=== PATIENT | female | born 1950 | race Caucasian/White ===

== ENCOUNTER 2017-10-13 19:27 | Inpatient (IN) | payer MEDICARE, OTHER ==
[2017-10-13 20:17] LABS: BASO % 0.3 % (0.0-1.0); EOS # 0.1 10^3/uL (0.0-0.50); EOS % 0.4 % (0.0-3.0); HEMATOCRIT 35.8 % (36.0-47.0); HEMOGLOBIN 10.6 g/dl (12.0-15.5); IMMATURE GRANULOCYTE % 0.3 % (0-3.0); LYMPH # 0.9 10^3/uL (1.5-4.5); LYMPH % 6.3 % (24.0-44.0); MEAN CORPUSCULAR HEMOGLOBIN 23.8 pg (27.0-33.0); MEAN CORPUSCULAR HGB CONC 29.6 g/dl (32.0-36.5); MEAN CORPUSCULAR VOLUME 80.3 fl (80.0-96.0); MONO # 0.6 10^3/uL (0.0-0.8); MONO % 4.3 % (0.0-5.0); NEUTROPHILS # 12.1 10^3/uL (1.8-7.7); NEUTROPHILS % 88.4 % (36.0-66.0); PLATELET COUNT, AUTOMATED 256 10^3/uL (150-450); RED BLOOD COUNT 4.46 10^6/uL (4.00-5.40); RED CELL DISTRIBUTION WIDTH 16.9 % (11.5-14.5); WHITE BLOOD COUNT 13.6 10^3/uL (4.0-10.0)
[2017-10-13 20:39] LABS: ANION GAP 8 MEQ/L (8-16); BLOOD UREA NITROGEN 10 MG/DL (7-18); CALCIUM LEVEL 8.6 MG/DL (8.8-10.2); CARBON DIOXIDE LEVEL 24 MEQ/L (21-32); CHLORIDE LEVEL 109 MEQ/L (98-107); CK-MB VALUE MASS 1.7 NG/ML (<3.6); CPK CREATINE PHOSPHOKINASE 104 U/L (26-192); CREATININE FOR GFR 0.75 MG/DL (0.55-1.30); GLOMERULAR FILTRATION RATE > 60.0 (>45); GLUCOSE, FASTING 93 MG/DL (70-100); MB/CK RELATIVE INDEX 1.63 (< OR =4); POTASSIUM SERUM 3.8 MEQ/L (3.5-5.1); SODIUM LEVEL 141 MEQ/L (136-145); TROPONIN I < 0.02 NG/ML (< 0.10)
[2017-10-13 20:51] LABS: FREE THYROXINE INDEX 4.3 % (1.3-4.8); T UPTAKE 37 % (30-39); THYROXINE (T4) 11.6 UG/DL (4.5-12.0)
[2017-10-13] MEDS: METOPROLOL TART 25 MG TABLET PO (21:01)
[2017-10-13] MEDS: ACETAMINOPHEN 325 MG TAB PO (21:01)
[2017-10-13] MEDS: AMPICILLIN SOD/SULBACTAM SOD 1.5 GM in D5W MINI-BAG PLUS 50 ML IV (21:34)
[2017-10-13 21:37] LABS: NT-PRO BNP 969 PG/ML (<125)
[2017-10-13 21:44] LABS: LACTIC ACID SEPSIS PROTOCOL 2.1 MMOL/L (0.4-2.0)
[2017-10-13] MEDS: APIXABAN 5 MG TAB (ELIQUIS) PO (21:51)
[2017-10-13] MEDS: FUROSEMIDE 40 MG/4 ML VIAL (J1940) IV (22:05)
[2017-10-13 22:17] LABS: INR 1.02; PROTHROMBIN TIME 13.5 SECONDS (12.4-14.5)
[2017-10-13 22:18] LABS: PARTIAL THROMBOPLASTIN TIME 36.6 SECONDS (26.8-37.9)
[2017-10-14] MEDS: ACETAMINOPHEN TAB 650MG DOSE (2X325MG) PO (02:31)
[2017-10-14] MEDS: AMPICILLIN SOD/SULBACTAM SOD 1.5 GM in D5W MINI-BAG PLUS 50 ML IV ×2 (03:18→09:32)
[2017-10-14 05:49] LABS: HEMATOCRIT 31.6 % (36.0-47.0); HEMOGLOBIN 9.4 g/dl (12.0-15.5); MEAN CORPUSCULAR HEMOGLOBIN 23.3 pg (27.0-33.0); MEAN CORPUSCULAR HGB CONC 29.7 g/dl (32.0-36.5); MEAN CORPUSCULAR VOLUME 78.2 fl (80.0-96.0); PLATELET COUNT, AUTOMATED 240 10^3/uL (150-450); RED BLOOD COUNT 4.04 10^6/uL (4.00-5.40); RED CELL DISTRIBUTION WIDTH 16.8 % (11.5-14.5); WHITE BLOOD COUNT 9.4 10^3/uL (4.0-10.0)
[2017-10-14 06:03] LABS: ANION GAP 5 MEQ/L (8-16); BLOOD UREA NITROGEN 9 MG/DL (7-18); CALCIUM LEVEL 7.8 MG/DL (8.8-10.2); CARBON DIOXIDE LEVEL 28 MEQ/L (21-32); CHLORIDE LEVEL 108 MEQ/L (98-107); CREATININE FOR GFR 0.71 MG/DL (0.55-1.30); GLOMERULAR FILTRATION RATE > 60.0 (>45); GLUCOSE, FASTING 110 MG/DL (70-100); MAGNESIUM LEVEL 2.3 MG/DL (1.8-2.4); POTASSIUM SERUM 3.6 MEQ/L (3.5-5.1); SODIUM LEVEL 141 MEQ/L (136-145)
[2017-10-14] MEDS ORDERED: PILL CRUSHER/CUTTER 1 EACH XX (09:15)
[2017-10-14] MEDS: CYANOCOBALAMIN 500 MCG TAB PO (09:30)
[2017-10-14] MEDS: VITAMIN D 1,000 INTERNATIONAL UNITS TABLET PO (09:30)
[2017-10-14] MEDS: TOLTERODINE (DETROL) 2 MG TAB PO (09:30)
[2017-10-14] MEDS: FERROUS SULFATE 325MG TAB PO (09:31)
[2017-10-14] MEDS: METOPROLOL TART 25 MG TABLET PO ×2 (09:31→21:05)
[2017-10-14] MEDS: FUROSEMIDE 40 MG/4 ML VIAL (J1940) IV (09:31)
[2017-10-14] MEDS: APIXABAN 5 MG TAB (ELIQUIS) PO ×2 (09:31→21:03)
[2017-10-14] MEDS: MULTIVITAMINS/MINERALS THERAP 1 TAB PO (09:31)
[2017-10-14] MEDS: cloNIDine 0.2 MG TAB PO ×2 (10:25→21:06)
[2017-10-14] MEDS: CEPHALEXIN 500 MG CAP PO ×2 (17:14→21:02)
[2017-10-15 05:21] LABS: HEMATOCRIT 29.1 % (36.0-47.0); HEMOGLOBIN 8.5 g/dl (12.0-15.5); MEAN CORPUSCULAR HEMOGLOBIN 23.4 pg (27.0-33.0); MEAN CORPUSCULAR HGB CONC 29.2 g/dl (32.0-36.5); MEAN CORPUSCULAR VOLUME 79.9 fl (80.0-96.0); PLATELET COUNT, AUTOMATED 192 10^3/uL (150-450); RED BLOOD COUNT 3.64 10^6/uL (4.00-5.40); RED CELL DISTRIBUTION WIDTH 16.8 % (11.5-14.5); WHITE BLOOD COUNT 4.8 10^3/uL (4.0-10.0)
[2017-10-15 05:37] LABS: ANION GAP 3 MEQ/L (8-16); BLOOD UREA NITROGEN 9 MG/DL (7-18); CARBON DIOXIDE LEVEL 31 MEQ/L (21-32); CHLORIDE LEVEL 109 MEQ/L (98-107); CREATININE FOR GFR 0.67 MG/DL (0.55-1.30); GLOMERULAR FILTRATION RATE > 60.0 (>45); GLUCOSE, FASTING 104 MG/DL (70-100); POTASSIUM SERUM 3.7 MEQ/L (3.5-5.1); SODIUM LEVEL 143 MEQ/L (136-145)
[2017-10-15 09:13] LABS: FERRITIN 12 NG/ML (8-252); IRON (FE) 17 UG/DL (50-170); PERCENT SATURATION 4.7 % (13.2-45.0); TOTAL IRON BINDING CAPACITY 364 UG/DL (250-450)
[2017-10-15] MEDS: CYANOCOBALAMIN 500 MCG TAB PO (09:14)
[2017-10-15] MEDS: APIXABAN 5 MG TAB (ELIQUIS) PO (09:14)
[2017-10-15] MEDS: TOLTERODINE (DETROL) 2 MG TAB PO (09:14)
[2017-10-15] MEDS: MULTIVITAMINS/MINERALS THERAP 1 TAB PO (09:16)
[2017-10-15] MEDS: CEPHALEXIN 500 MG CAP PO ×4 (09:16→20:51)
[2017-10-15] MEDS: VITAMIN D 1,000 INTERNATIONAL UNITS TABLET PO (09:16)
[2017-10-15] MEDS: METOPROLOL TART 25 MG TABLET PO ×2 (09:18→20:51)
[2017-10-15] MEDS: cloNIDine 0.2 MG TAB PO (09:19)
[2017-10-15] MEDS: FERROUS SULFATE 325MG TAB PO ×3 (09:20→20:51)
[2017-10-15] MEDS ORDERED: FUROSEMIDE 40 MG/4 ML VIAL (J1940) IV (12:00)
[2017-10-15] MEDS: PANTOPRAZOLE 40MG TAB (PROTONIX) PO (13:02)
[2017-10-15] MEDS: ACETAMINOPHEN TAB 650MG DOSE (2X325MG) PO (13:03)
[2017-10-15] MEDS: FUROSEMIDE 20 MG/2 ML VIAL (J1940) IV (13:04)
[2017-10-15] MEDS ORDERED: FERROUS GLUCONATE 324 MG TAB PO (16:00)
[2017-10-15] MEDS: LISINOPRIL *2.5 MG* TAB PO (20:51)
[2017-10-16] MEDS: ACETAMINOPHEN TAB 650MG DOSE (2X325MG) PO ×2 (04:23→13:13)
[2017-10-16 05:40] LABS: HEMOGLOBIN 9.2 g/dl (12.0-15.5); MEAN CORPUSCULAR HEMOGLOBIN 23.2 pg (27.0-33.0); MEAN CORPUSCULAR HGB CONC 29.7 g/dl (32.0-36.5); MEAN CORPUSCULAR VOLUME 78.3 fl (80.0-96.0); PLATELET COUNT, AUTOMATED 222 10^3/uL (150-450); RED BLOOD COUNT 3.96 10^6/uL (4.00-5.40); RED CELL DISTRIBUTION WIDTH 16.3 % (11.5-14.5)
[2017-10-16 05:58] LABS: ANION GAP 6 MEQ/L (8-16); BLOOD UREA NITROGEN 11 MG/DL (7-18); CALCIUM LEVEL 7.8 MG/DL (8.8-10.2); CARBON DIOXIDE LEVEL 27 MEQ/L (21-32); CHLORIDE LEVEL 109 MEQ/L (98-107); CREATININE FOR GFR 0.69 MG/DL (0.55-1.30); GLOMERULAR FILTRATION RATE > 60.0 (>45); GLUCOSE, FASTING 99 MG/DL (70-100); POTASSIUM SERUM 3.4 MEQ/L (3.5-5.1); SODIUM LEVEL 142 MEQ/L (136-145)
[2017-10-16 07:15] LABS: MAGNESIUM LEVEL 2.3 MG/DL (1.8-2.4)
[2017-10-16] MEDS: FUROSEMIDE 20 MG/2 ML VIAL (J1940) IV (08:25)
[2017-10-16] MEDS: MULTIVITAMINS/MINERALS THERAP 1 TAB PO (08:26)
[2017-10-16] MEDS: ENOXAPARIN 80 MG/0.8 ML SYRINGE (J1650) SC ×2 (08:26→20:16)
[2017-10-16] MEDS: VITAMIN D 1,000 INTERNATIONAL UNITS TABLET PO (08:26)
[2017-10-16] MEDS: CEPHALEXIN 500 MG CAP PO ×4 (08:27→20:16)
[2017-10-16] MEDS: POTASSIUM CHLORIDE 10 MEQ SR TABLET PO ×2 (08:27→08:45)
[2017-10-16] MEDS: PANTOPRAZOLE 40MG TAB (PROTONIX) PO (08:28)
[2017-10-16] MEDS: METOPROLOL TART 25 MG TABLET PO ×2 (08:29→20:17)
[2017-10-16] MEDS: TOLTERODINE (DETROL) 2 MG TAB PO (08:29)
[2017-10-16] MEDS: CYANOCOBALAMIN 500 MCG TAB PO (08:29)
[2017-10-16] MEDS: FERROUS SULFATE 325MG TAB PO ×3 (08:29→20:16)
[2017-10-16] MEDS: LISINOPRIL 5 MG TAB PO (20:17)
[2017-10-17 05:54] LABS: HEMATOCRIT 36.2 % (36.0-47.0); HEMOGLOBIN 10.9 g/dl (12.0-15.5); MEAN CORPUSCULAR HEMOGLOBIN 23.3 pg (27.0-33.0); MEAN CORPUSCULAR HGB CONC 30.1 g/dl (32.0-36.5); MEAN CORPUSCULAR VOLUME 77.5 fl (80.0-96.0); PLATELET COUNT, AUTOMATED 281 10^3/uL (150-450); RED BLOOD COUNT 4.67 10^6/uL (4.00-5.40); RED CELL DISTRIBUTION WIDTH 16.6 % (11.5-14.5); WHITE BLOOD COUNT 6.7 10^3/uL (4.0-10.0)
[2017-10-17 06:13] LABS: ANION GAP 6 MEQ/L (8-16); BLOOD UREA NITROGEN 11 MG/DL (7-18); CARBON DIOXIDE LEVEL 26 MEQ/L (21-32); CHLORIDE LEVEL 109 MEQ/L (98-107); CREATININE FOR GFR 0.71 MG/DL (0.55-1.30); GLOMERULAR FILTRATION RATE > 60.0 (>45); GLUCOSE, FASTING 102 MG/DL (70-100); NT-PRO BNP 1885 PG/ML (<125); POTASSIUM SERUM 3.7 MEQ/L (3.5-5.1); SODIUM LEVEL 141 MEQ/L (136-145)
[2017-10-17] MEDS: METOPROLOL TART 25 MG TABLET PO (08:52)
[2017-10-17] MEDS: VITAMIN D 1,000 INTERNATIONAL UNITS TABLET PO (08:52)
[2017-10-17] MEDS: CYANOCOBALAMIN 500 MCG TAB PO (08:53)
[2017-10-17] MEDS: MULTIVITAMINS/MINERALS THERAP 1 TAB PO (08:53)
[2017-10-17] MEDS: PANTOPRAZOLE 40MG TAB (PROTONIX) PO (08:53)
[2017-10-17] MEDS: FERROUS SULFATE 325MG TAB PO (08:53)
[2017-10-17] MEDS: ENOXAPARIN 80 MG/0.8 ML SYRINGE (J1650) SC (08:53)
[2017-10-17] MEDS: CEPHALEXIN 500 MG CAP PO (08:53)
[2017-10-17] MEDS: TOLTERODINE (DETROL) 2 MG TAB PO (08:53)
[2017-10-17] MEDS: FUROSEMIDE 20 MG/2 ML VIAL (J1940) IV (08:54)
[2017-10-17 10:30] LABS: VITAMIN B12 LEVEL > 2000 PG/ML (247-911)
[2017-10-17 10:31] LABS: FOLATE 7.7 NG/ML (>5.4)
[2017-10-17] MEDS ORDERED: LISINOPRIL 10 MG TAB PO (21:00)
== END 2017-10-17 09:42 | disposition home or self-care (01) | DRG 308 ==
LOC: M ED 19:27 → M ED INP 22:33 → M PCU 23:42
DX: I48.91 Unspecified atrial fibrillation (principal); I50.31 Acute diastolic (congestive) heart failure; L03.115 Cellulitis of right lower limb; L03.116 Cellulitis of left lower limb; D53.9 Nutritional anemia, unspecified; I10 Essential (primary) hypertension; K21.9 Gastro-esophageal reflux disease without esophagitis; Z79.899 Other long term (current) drug therapy; N32.81 Overactive bladder; Z98.84 Bariatric surgery status

== ENCOUNTER → 2017-10-25 | Outpatient (REF) | payer MEDICARE, OTHER | LOC: M SFHCADAM 10:20 | DX: I50.22 Chronic systolic (congestive) heart failure (principal); Z53.8 Procedure and treatment not carried out for other reasons ==

== ENCOUNTER → 2017-10-26 | Outpatient (REF) | payer MEDICARE, OTHER ==
[2017-10-26 13:44] LABS: ALBUMIN 3.8 GM/DL (3.2-5.2); ALBUMIN/GLOBULIN RATIO 1.09 (1.00-1.93); ALKALINE PHOSPHATASE 120 U/L (45-117); ALT/SGPT 35 U/L (12-78); ANION GAP 10 MEQ/L (8-16); AST/SGOT 28 U/L (7-37); BILIRUBIN,TOTAL 0.4 MG/DL (0.2-1.0); BLOOD UREA NITROGEN 20 MG/DL (7-18); CALCIUM LEVEL 8.7 MG/DL (8.8-10.2); CARBON DIOXIDE LEVEL 25 MEQ/L (21-32); CHLORIDE LEVEL 104 MEQ/L (98-107); CREATININE FOR GFR 0.88 MG/DL (0.55-1.30); GLOMERULAR FILTRATION RATE > 60.0 (>45); GLUCOSE, FASTING 113 MG/DL (70-100); POTASSIUM SERUM 4.5 MEQ/L (3.5-5.1); SODIUM LEVEL 139 MEQ/L (136-145); TOTAL PROTEIN 7.3 GM/DL (6.4-8.2)
== END ==
LOC: M SFHCADAM 10:38
DX: I50.22 Chronic systolic (congestive) heart failure (principal)

== ENCOUNTER → 2017-10-26 | Outpatient (REF) | payer MEDICARE, OTHER ==
[2017-10-26 14:01] LABS: CHOLESTEROL LEVEL 145 MG/DL (<200); CHOLESTEROL RISK RATIO 2.543 (<5); FREE T4 1.16 NG/DL (0.76-1.46); HDL CHOLESTEROL 57 MG/DL (>40); LDL CHOLESTEROL 59.6 MG/DL (<100); NON-HDL-C 88 MG/DL; THYROID STIMULATING HORMONE 0.801 uIU/ML (0.358-3.740); TRIGLYCERIDES LEVEL 142 MG/DL (<150)
== END ==
LOC: M LABDRWAD 13:17
DX: I48.91 Unspecified atrial fibrillation (principal); I51.7 Cardiomegaly; I50.22 Chronic systolic (congestive) heart failure
CPT/HCPCS: 84443

== ENCOUNTER → 2017-11-17 | Outpatient (CLI) | payer MEDICARE, OTHER | LOC: M WHC 13:50 | DX: Z12.31 Encounter for screening mammogram for malignant neoplasm of breast (principal); M85.851 Other specified disorders of bone density and structure, right thigh; M85.852 Other specified disorders of bone density and structure, left thigh; M85.88 Other specified disorders of bone density and structure, other site; Z13.820 Encounter for screening for osteoporosis | CPT/HCPCS: 77067 ==

== ENCOUNTER → 2018-01-26 | Outpatient (REF) | payer MEDICARE, OTHER ==
[2018-01-26 20:13] LABS: BASO % 0.6 % (0.0-1.0); EOS # 0.1 10^3/uL (0.0-0.50); EOS % 1.6 % (0.0-3.0); HEMOGLOBIN 11.9 g/dl (12.0-15.5); IMMATURE GRANULOCYTE % 0.1 % (0-3.0); LYMPH # 1.7 10^3/uL (1.5-4.5); LYMPH % 24.3 % (24.0-44.0); MEAN CORPUSCULAR HEMOGLOBIN 26.4 pg (27.0-33.0); MEAN CORPUSCULAR HGB CONC 31.3 g/dl (32.0-36.5); MEAN CORPUSCULAR VOLUME 84.4 fl (80.0-96.0); MONO # 0.6 10^3/uL (0.0-0.8); MONO % 8.8 % (0.0-5.0); NEUTROPHILS # 4.4 10^3/uL (1.8-7.7); NEUTROPHILS % 64.6 % (36.0-66.0); PLATELET COUNT, AUTOMATED 213 10^3/uL (150-450); RED CELL DISTRIBUTION WIDTH 18.6 % (11.5-14.5); WHITE BLOOD COUNT 6.8 10^3/uL (4.0-10.0)
[2018-01-26 20:32] LABS: ANION GAP 6 MEQ/L (8-16); BLOOD UREA NITROGEN 16 MG/DL (7-18); CALCIUM LEVEL 8.5 MG/DL (8.8-10.2); CARBON DIOXIDE LEVEL 29 MEQ/L (21-32); CHLORIDE LEVEL 108 MEQ/L (98-107); CREATININE FOR GFR 0.82 MG/DL (0.55-1.30); GLOMERULAR FILTRATION RATE > 60.0 (>45); GLUCOSE, FASTING 88 MG/DL (70-100); POTASSIUM SERUM 4.3 MEQ/L (3.5-5.1); SODIUM LEVEL 143 MEQ/L (136-145)
== END ==
LOC: M LABDRWAD 19:27
DX: R07.89 Other chest pain (principal); R06.02 Shortness of breath
CPT/HCPCS: 80048